=== PATIENT | male | born 1950 | race Caucasian/White ===

== ENCOUNTER 2023-09-29 20:11 | Emergency (ER) | payer MEDICARE ==
[~2023-09-29] VITALS: Ht 177.8 cm; Wt 84.1 kg
[2023-09-29 21:07] LABS: BASOPHILS # (AUTO) 0.1 X10'3 (0-0.2); BASOPHILS % (AUTO) 0.6 % (0-1); EOSINOPHILS # (AUTO) 0.1 X10'3 (0-0.9); EOSINOPHILS % (AUTO) 0.6 % (0-6); HEMOGLOBIN 17.6 g/dl (14.0-17.9); LYMPHOCYTES # (AUTO) 1.9 X10'3 (1.1-4.8); LYMPHOCYTES % (AUTO) 18.2 % (21-51); MEAN CORPUSCULAR HEMOGLOBIN 30.3 PG (27.0-31.0); MEAN CORPUSCULAR HGB CONC 33.8 g/dL (33.0-36.5); MEAN CORPUSCULAR VOLUME 89.5 FL (78-98); MEAN PLATELET VOLUME 7.9 FL (7.4-10.4); MONOCYTES # (AUTO) 0.7 X10'3 (0-0.9); MONOCYTES % (AUTO) 7.2 % (2-12); NEUTROPHILS # (AUTO) 7.5 X10'3 (1.8-7.7); NEUTROPHILS % (AUTO) 73.4 % (42-75); PLATELET COUNT 290 X10'3 (140-440); RED CELL DISTRIBUTION WIDTH 14.1 % (11.5-14.5); WHITE BLOOD COUNT 10.2 X10'3 (4.5-11.0)
[2023-09-29 21:13] LABS: BILIRUBIN,URINE SMALL (Neg); CLARITY,URINE SLIGHTLY CLOUDY (Clear); COLOR,URINE AMBER (Yellow); GLUCOSE, URINE NEGATIVE (Neg); KETONES,URINE NEGATIVE (Neg); LEUKOCYTE ESTERASE ,URINE NEGATIVE (Neg); NITRITES, URINE NEGATIVE (Neg); OCCULT BLOOD,URINE TRACE-INTACT (Neg); PROTEIN,URINE NEGATIVE (Neg); UROBILINOGEN,URINE 0.2 E.U/dL (0.2-1.0)
[2023-09-29 21:21] LABS: UA COLLECTION TYPE VOIDED
[2023-09-29 21:22] LABS: MUCUS STRANDS MANY /LPF (Neg); SQUAMOUS EPITHELIAL CELL,UR FEW /LPF (FEW)
[2023-09-29 21:23] LABS: BACTERIA,URINE 3+ /HPF (Neg); RBC,URINE 0-2 /HPF (0-2); TRANSITIONAL EPI CELLS,URINE FEW /HPF; WBC,URINE 0-4 /HPF (0-4)
[2023-09-29 21:25] LABS: URINE AMPHETAMINE SCREEN NEGATIVE (Neg); URINE BARBITUATE SCREEN NEGATIVE (Neg); URINE BENZODIAZEPINES SCREEN NEGATIVE (Neg); URINE CANNABINOID SCREEN NEGATIVE (Neg); URINE COCAINE SCREEN NEGATIVE (Neg); URINE METHADONE SCREEN NEGATIVE (Neg); URINE OPIATE SCREEN NEGATIVE (Neg); URINE PHENCYCLIDINE SCREEN NEGATIVE (Neg)
[2023-09-29 21:26] LABS: ALANINE AMINOTRANSFERASE 22 U/L (12-78); ALBUMIN 4.2 G/DL (3.4-5.0); ALBUMIN/GLOBULIN RATIO 0.9 (1.1-1.5); ALKALINE PHOSPHATASE 72 IU/L (46-116); ANION GAP 10 (8-16); ASPARTATE AMINO TRANSFERASE 23 U/L (10-37); BLOOD UREA NITROGEN 24 MG/DL (7-18); BUN/CREATININE RATIO 25.3 (10.0-20.0); CALCIUM 9.8 MG/DL (8.5-10.1); CHLORIDE 105 MMOL/L (99-107); CREATININE 0.95 MG/DL (0.60-1.10); GLUCOSE 87 MG/DL (70-104); POTASSIUM 3.8 MMOL/L (3.5-5.1); SODIUM 144 MMOL/L (135-145); TOTAL CARBON DIOXIDE 28.7 MMOL/L (24-32); TOTAL PROTEIN 8.8 G/DL (6.4-8.2); eGFR 78 ML/MIN
[2023-09-29 21:34] LABS: ETHANOL < 10 MG/DL (<10); THYROID STIMULATING HORMONE 2.32 ulU/ml (0.34-4.50)
[2023-09-29] MEDS ORDERED: NO HOME MEDS (23:11)
[2023-10-01] MEDS ORDERED: CLONIDINE (14:40)
[2023-10-01] MEDS ORDERED: LORA-268 (14:40)
[2023-10-01] MEDS ORDERED: VITAMIN B-12 (14:40)
[2023-10-01] MEDS ORDERED: REMERON (14:40)
[2023-10-01] MEDS ORDERED: HALDOL (14:40)
[2023-10-01] MEDS ORDERED: OLANZapine **IM** 10 mg inj. IM ONE (20:29)
[2023-10-02] MEDS ORDERED: DONE10TA44 PO (13:03)
[2023-10-02] MEDS ORDERED: CHOL500050 PO (13:07)
[2023-10-02] MEDS ORDERED: FOLI1TAB27 PO (13:07)
[2023-10-03] MEDS ORDERED: OLANZapine 5mg rapidly disint. tablet PO ONE (00:15)
[2023-10-03] MEDS: folic acid 1mg tablet PO SCH (08:00)
[2023-10-03] MEDS: cholecalciferol (vitamin D3) 1,000 unit (25mcg) tablet PO SCH (08:00)
[2023-10-03] MEDS: donepezil 5mg tablet PO SCH (08:00)
[2023-10-03] MEDS ORDERED: OLANZapine 2.5MG tablet PO STA (23:49)
[2023-10-04] MEDS: folic acid 1mg tablet PO SCH (07:49)
[2023-10-04] MEDS: cholecalciferol (vitamin D3) 1,000 unit (25mcg) tablet PO SCH (07:49)
[2023-10-04] MEDS: donepezil 5mg tablet PO SCH (07:50)
[2023-10-04] MEDS ORDERED: QUEtiapine 25mg tablet PO ONE (09:30)
[2023-10-04] MEDS ORDERED: LORazepam 1 MG tablet PO ONE (09:30)
[2023-10-04] MEDS ORDERED: LORazepam 1 MG tablet PO PRN (16:10)
[2023-10-04] MEDS ORDERED: QUEtiapine 25mg tablet PO PRN (16:10)
[2023-10-05 05:51] VITALS: BP 126/70; PULSE 66; TEMP 97.5; O2SAT 98
[2023-10-05] MEDS: folic acid 1mg tablet PO SCH (07:29)
[2023-10-05] MEDS: donepezil 5mg tablet PO SCH (07:30)
[2023-10-05] MEDS: cholecalciferol (vitamin D3) 1,000 unit (25mcg) tablet PO SCH (07:30)
[2023-10-05 07:45] VITALS: RESP 16
== END 2023-10-05 12:49 | disposition home or self-care (01) ==
LOC: ER 20:13
DX: F03.90 Unspecified dementia, unspecified severity, without behavioral disturbance, psychotic disturbance, mood disturbance, and anxiety (principal); Z20.822 Contact with and (suspected) exposure to COVID-19; Z79.899 Other long term (current) drug therapy
CPT/HCPCS: 36415; 80053; 80305; 80320; 81001; 84443; 85025; 87811; 96372; 99285